=== PATIENT | female | born 1930 | race Caucasian/White ===

== ENCOUNTER → 2016-08-04 | Outpatient (CLI) | payer MEDICARE, MEDICAID ==
--- NOTE | 2016-08-04 22:38 | XA ---
Exam Date: 08/04/16 Patient's Age: 86 HEIGHT: 63.0 in. WEIGHT: 97.0 lbs. INDICATIONS: Advanced age, back pain, currently menopausal. FRACTURES: TREATMENTS: Calcium with vitamin D, metformin. ASSESSMENT: The BMD measured at Femur Neck is 0.694 g/cm2 with a T-score of -2.5. This patient is considered osteoporotic according to World Health Organization (WHO) criteria. Fracture risk is high. Pharmacological treatment if not already prescribed should be started. A followup bone density test is recommended in one year to monitor response to therapy. The BMD measured at Femur Total is 0.699 g/cm2 with a T-score of -2.5. This patient is considered osteoporotic according to World Health Organization (WHO) criteria. Fracture risk is high. Pharmacological treatment if not already prescribed should be started. A followup bone density test is recommended in one year to monitor response to therapy. RESULTS: Site Region Age Classification T-Score BMD AP Spine L1-L4 88.1 Osteopenia -1.9 0.960 g/cm2 Left Femur Total 88.1 Osteoporosis -2.5 0.699 g/cm2 Left Forearm Radius 33% 88.1 Osteoporosis -4.0 0.530 g/cm2 World Health Organization - Criteria for post-menopausal, women: Normal: T-Score at or above -1 SD Osteopenia: T-Score between -1 and -2.5 SD Osteoporosis: T-Score at or below -2.5 SD RECOMMENDATION: Pharmacologic treatment recommendations & Initiate pharmacologic treatment: - In those with hip or vertebral (clinical or asymptomatic) fractures - In those with T -scores <-2.5 at the femoral neck, total hip, or lumbar spine by DXA - In postmenopausal women and men age 50 and older with low bone mass (T-score between -1.0 and -2.5, osteopenia) at the femoral neck, total hip, or lumbar spine by DXA and a 10-year hip fracture probability >3 % or a 10-year major osteoporosis-related fracture probability >20% based on the [place]-adapted WHO absolute fracture risk model (Fracture Risk Algorithm (FRAX); www. NOF.org and www.shef.ac.uk/FRAX) FOLLOW UP: People with diagnosed cases of osteoporosis or at high risk for fracture should have regular bone mineral density tests. For patients eligible for Medicare, routine testing is allowed once every 2 years. The testing frequency can be increased to 1 year for patients who have rapidly progressing disease, those who are reviewing or discontinuing medial therapy to restore bone mass, or have additional risk factors. People with diagnosed cases of osteoporosis or osteopenia should be regularly tested for bone mineral density. For patient eligible for Medicare, routine testing is allowed once every 2 years. The testing frequency can be increased to 1 year for patients who have rapidly progressing disease, or for those who are receiving medial therapy to restore bone mass. [facility] -- BOB Villagomez [phone] - FAX: [phone] [place]
== END ==
LOC: MW.DI 13:31
PROVIDERS: ATTEND Registered Nurse Emergency
DX: Z13.820 Encounter for screening for osteoporosis (principal); M81.0 Age-related osteoporosis without current pathological fracture
CPT/HCPCS: 77080; 77080-26